=== PATIENT | female | born 1935 | race Two or more races ===

== ENCOUNTER 2025-01-15 18:56 | Emergency (ER) | payer BC, MEDICAID ==
[~2025-01-15] VITALS: Ht 157.5 cm; Wt 59.1 kg
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
--- NOTE | 2025-01-15 20:38 | ECG ---
[facility] Test Date: 2025-01-15 Test Time: 19:07:45 Pat Name: GARRETT GONZALEZ Department: [facility] ED Patient ID: [facility]-[id number] Room: Gender: F Seismometer Operator: albert : 1935 Requested By: VASU MARIN Order Number: [id number] Reading MD: Silvestre Akbar Measurements Intervals [place] Rate: 102 P: 63 CT: 210 QRS: 63 QRSD: 99 T: 233 QT: 301 QTc: 393 Interpretive Statements Sinus tachycardia Borderline prolonged CT interval Repol abnrm suggests ischemia, anterolateral Electronically Signed On 01-21-2025 14:12:33 PDT by Silvestre Akbar Please click the below link to view image of tracing.
--- NOTE | 2025-01-15 20:53 | DVH ---
CHEST RADIOGRAPH Indication: AMS Technique: Single frontal view of the chest was obtained Comparison: None FINDINGS: Lines and Tubes: None Lungs: Mildly prominent bronchovascular markings in the right base may represent atelectasis or scarr ing. No prior studies for comparison. Pleura: No effusion. No pneumothorax. Cardiomediastinal contours: Unremarkable Bones: No acute osseous abnormality. IMPRESSION: 1. Scarring or chronic changes right base.
[2025-01-15 20:58] LABS: Hematocrit 38.9 % (36.0-46.0); Hemoglobin 13.6 g/dL (12.2-16.2); Mean Corpuscular Hemoglobin 32.1 pg (28.0-32.0); Mean Corpuscular Volume 92.0 fL (80.0-100.0); Nucleated Red Blood Cells % 0.0 %
[2025-01-15 21:14] LABS: Urine Protein, UAD 1+ (Negative)
[2025-01-15 21:14] LABS: Alanine Aminotransferase 16 U/L (7-40); Albumin 4.5 g/dL (3.2-4.8); Alkaline Phosphatase 114 U/L (46-116); Anion Gap 10 (5-15); BUN/Creatinine Ratio 15.0 (10.0-20.0); Blood Urea Nitrogen 12 mg/dL (9-23); Calcium 9.2 mg/dL (8.7-10.4); Carbon Dioxide 26 mmol/L (20-31); Sodium 144 mmol/L (136-145); Total Protein 7.4 g/dL (5.7-8.2)
[2025-01-15 21:15] LABS: Bilirubin, Total 0.4 mg/dL (0.2-1.0)
[2025-01-15 21:16] LABS: Chloride 108 mmol/L (98-107); Glucose 134 mg/dL (74-106); Potassium 3.4 mmol/L (3.5-5.1)
[2025-01-15 21:16] LABS: Amphetamine Screen, Urine Neg (NEGATIVE); Barbiturate Scree,Urine Neg (NEGATIVE); Benzodiazephine Screen, Urine Neg (NEGATIVE); Cannabinoid Screen, Urine Neg (NEGATIVE); Cocaine Screen, Urine Neg (NEGATIVE); Opiate Scree,Urine Neg (NEGATIVE); Phencyclidine Screen, Urine Neg (NEGATIVE)
--- NOTE | 2025-01-15 21:34 | DVH ---
EXAM: CT HEAD WITHOUT CONTRAST INDICATION: Transient confusion TECHNIQUE: CT of the head without intravenous contrast. Radiation Dose : 1. Head: CT Dose: CTDI volume is 53.29 mGy. Dose-length product is 1.71 mGy*cm The dose indicators for CT are the volume Computed Tomography (CT) Dose Index (CTDIvol) and the Dose Length Product (DLP), and are measured in units of mGy and mGy-cm, respectively. These indicators are not patient dose, but values generated from the CT scanner acquisition factors. The report includes radiation exposure data for exposures received during this examination. COMPARISON: MR-BRAIN WW on DOS: 05/04/19, CT-HEAD WO CONTRAST on DOS: 05/04/19 FINDINGS: Evaluate is heavily degraded by artifact. No acute territorial infarct, intracranial hemorrhage, or mass effect. There are global involutional changes with compensatory prominence of the ventricles and sulci. Patchy periventricular and subcorti hilario white matter hypoattenuation is nonspecific but may be related to small vessel ischemic disease. The orbits are normal. Mild mucosal thickening of the maxillary antra and ethmoid air cells. The osse ous structures are unremarkable. IMPRESSION: 1. Artifact degraded evaluation without evidence of acute territorial infarct, intracranial hemorrhag e, or mass effect. Consider a repeat examination or MRI as clinically indicated. 2. Age-related involutional changes. Chronic microvascular changes. Radiation optimization: All CT scans at this facility use at least one of these dose optimization arianne hniques: automated exposure control mA and/or kV adjustment per patient size (includes targeted exam s where dose is matched to clinical indication) or iterative reconstruction.
[2025-01-16] VITALS: PULSE 74; RESP 12; O2SAT 96
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
[2025-01-16 08:00] VITALS: PULSE 74; RESP 19; O2SAT 94
[2025-01-17 06:15] VITALS: RESP 22; O2SAT 97
[2025-01-17 09:05] VITALS: PULSE 85; RESP 16; O2SAT 95
[2025-01-17 19:30] VITALS: PULSE 86; RESP 14; O2SAT 95
[2025-01-18 07:35] VITALS: PULSE 84; RESP 18; O2SAT 98
[2025-01-18] MEDS: CEPHALEXIN 250 MG CAP PO ONE (23:00)
[2025-01-19 07:20] VITALS: PULSE 99; RESP 16; O2SAT 98
[2025-01-19] MEDS: cefTRIAXone 1GM/50ML 0 ML IV ONE (22:28)
[2025-01-20 07:39] VITALS: PULSE 85; RESP 16; O2SAT 94
[2025-01-20 19:30] VITALS: PULSE 86; RESP 16; O2SAT 98
[2025-01-21 20:20] VITALS: BP 142/71; PULSE 88; RESP 17; TEMP 99; O2SAT 94
== END 2025-01-21 20:34 | disposition home or self-care (01) ==
LOC: EDBD 18:56 → ER 18:56
DX: N39.0 Urinary tract infection, site not specified (principal); Z79.899 Other long term (current) drug therapy
CPT/HCPCS: 36415; 70450; 71045; 80053; 80307; 80320; 81001; 82947; 83880; 84484; 85025; 87040; 87086; 93005; 96365; 96366; 97163; 99285; J0696; 82962